=== PATIENT | female | born 1955 | race Caucasian/White ===

== ENCOUNTER 2018-06-09 17:11 | Outpatient (CLI) | payer BC ==
--- NOTE | 2018-06-09 18:47 | RAD ---
CHEST TWO VIEWS: 06/09/18 HISTORY: Cough and fever. COMPARISON: 01/31/15 study. Heart size appears borderline size. There are atherosclerotic changes of the aorta. The lungs show so me chronic change. No focal infiltrates. Right humeral prosthesis is present and appears to be somewh at medially subluxed. This is probably just related to the positioning. There is an old appearing rig ht clavicle fracture. IMPRESSION: No active intrathoracic disease. POS: [facility]
== END 2018-06-09 17:12 | disposition home or self-care (01) ==
LOC: SCSRAD 17:11
PROVIDERS: ATTEND Family Medicine
DX: R05 Cough (principal)
CPT/HCPCS: 36415; 71046; 83880

== ENCOUNTER 2018-10-21 10:47 | Outpatient (CLI) | payer BC ==
--- NOTE | 2018-10-21 15:06 | MMO ---
Bilateral MAMMO Bilat Screen [facility]. CLINICAL HISTORY: Patient is 63 years old and is seen for screening. The patient has no family history of breast cancer. The patient has no personal history of cancer. VIEWS: The views performed were: bilateral craniocaudal with tomosynthesis and bilateral mediolateral oblique with tomosynthesis. FILMS COMPARED: The present examination has been compared to prior imaging studies performed at [facility] on 04/26/2008, 04/30/2009, 08/07/2010, 10/02/2011, 03/14/2013, 03/30/2014 and 12/27/2015, and at [facility] on 06/05/1995 and 10/19/2000. MAMMOGRAM FINDINGS: There are scattered fibroglandular densities. There are no suspicious masses, suspicious calcifications, or new areas of architectural distortion. IMPRESSION: THERE IS NO MAMMOGRAPHIC EVIDENCE OF MALIGNANCY. A ROUTINE FOLLOW-UP MAMMOGRAM IN 1 YEAR IS RECOMMENDED. THE RESULTS OF THIS EXAM WERE SENT TO THE PATIENT. ACR BI-RADS Category 1 - Negative MAMMOGRAPHY NOTE: 1. A negative mammogram report should not delay a biopsy if a dominant of clinically suspicious mass is present. 2. Approximately 10% to 15% of breast cancers are not detected by mammography. 3. Adenosis and dense breasts may obscure an underlying neoplasm.
== END 2018-10-21 10:48 | disposition home or self-care (01) ==
LOC: BICMAMMO 10:47
PROVIDERS: ATTEND Family Medicine
DX: Z12.31 Encounter for screening mammogram for malignant neoplasm of breast (principal)
CPT/HCPCS: 77063; 77067

== ENCOUNTER 2020-03-15 11:27 | Outpatient (CLI) | payer BC ==
--- NOTE | 2020-03-15 11:52 | RAD ---
Exam: Chest one view 2 views right ribs HISTORY: Right chest wall pain FINDINGS: Chest one view: Slight elongation of the aorta. Normal cardiac silhouette. Pelvic vessels and hilum a re normal Costophrenic angles are clear. Hyperinflation with chronic lung parenchymal changes. No pneumothorax. Right rib fractures are noted. Right humeral prosthesis is identified Right wrist series: There are fractures involving the anterior lateral right fourth, fifth and possib ly sixth ribs. IMPRESSION: 1. Chronic lung parenchymal changes. 2. Right rib fractures. No pneumothorax.
== END 2020-03-15 11:28 | disposition home or self-care (01) ==
LOC: BICRAD 11:27
PROVIDERS: ATTEND Physician Assistant Medical
DX: R07.89 Other chest pain (principal); S22.41XA Multiple fractures of ribs, right side, initial encounter for closed fracture

== ENCOUNTER 2020-05-03 15:06 | Outpatient (CLI) | payer BC ==
--- NOTE | 2020-05-03 16:06 | MMO ---
Bilateral MAMMO Bilat Screen [facility]. CLINICAL HISTORY: Patient is 64 years old and is seen for screening. The patient has no family history of breast cancer. The patient has no personal history of cancer. VIEWS: The views performed were: bilateral craniocaudal with tomosynthesis and bilateral mediolateral oblique with tomosynthesis. FILMS COMPARED: The present examination has been compared to prior imaging studies performed at [facility] on 03/14/2013, 03/30/2014, 12/27/2015 and 10/21/2018. This study has been interpreted with the assistance of computer-aided detection. MAMMOGRAM FINDINGS: There are scattered fibroglandular densities. There are no suspicious masses, suspicious calcifications, or new areas of architectural distortion. IMPRESSION: THERE IS NO MAMMOGRAPHIC EVIDENCE OF MALIGNANCY. A ROUTINE FOLLOW-UP MAMMOGRAM IN 1 YEAR IS RECOMMENDED. THE RESULTS OF THIS EXAM WERE SENT TO THE PATIENT. ACR BI-RADS Category 1 - Negative MAMMOGRAPHY NOTE: 1. A negative mammogram report should not delay a biopsy if a dominant of clinically suspicious mass is present. 2. Approximately 10% to 15% of breast cancers are not detected by mammography. 3. Adenosis and dense breasts may obscure an underlying neoplasm. Reported by: CLAYTON DIANE MD Electonically Signed: [id number]
== END 2020-05-03 15:07 | disposition home or self-care (01) ==
LOC: BICMAMMO 15:06
PROVIDERS: ATTEND Family Medicine
DX: Z12.31 Encounter for screening mammogram for malignant neoplasm of breast (principal)
CPT/HCPCS: 77063; 77067

== ENCOUNTER 2021-03-20 09:56 | Outpatient (CLI) | payer BC, MEDICARE | END 2021-03-20 09:57 | disposition home or self-care (01) | LOC: TBSIIMAG 09:56 | PROVIDERS: ATTEND Orthopaedic Surgery | DX: M47.816 Spondylosis without myelopathy or radiculopathy, lumbar region (principal) | CPT/HCPCS: 72148 ==

== ENCOUNTER 2021-05-17 14:55 | Outpatient (CLI) | payer BC, MEDICARE | END 2021-05-17 14:56 | disposition home or self-care (01) | LOC: BICMAMMO 14:55 | PROVIDERS: ATTEND Family Medicine | DX: Z12.31 Encounter for screening mammogram for malignant neoplasm of breast (principal) | CPT/HCPCS: 77063; 77067 ==

== ENCOUNTER 2022-06-12 10:12 | Outpatient (CLI) | payer MEDICARE, OTHER | END 2022-06-12 10:13 | disposition home or self-care (01) | LOC: BICMAMMO 10:12 | PROVIDERS: ATTEND Family Medicine | DX: Z12.31 Encounter for screening mammogram for malignant neoplasm of breast (principal) | CPT/HCPCS: 77063; 77067 ==

== ENCOUNTER 2022-10-08 14:05 | Outpatient (CLI) | payer MEDICARE, OTHER | END 2022-10-08 14:06 | disposition home or self-care (01) | LOC: DTY/OP 14:05 | PROVIDERS: ATTEND Family Medicine | DX: E11.9 Type 2 diabetes mellitus without complications (principal) | CPT/HCPCS: 97802 ==

== ENCOUNTER 2023-04-10 17:00 | Outpatient (CLI) | payer MEDICARE, OTHER | END 2023-04-10 17:01 | disposition home or self-care (01) | LOC: SLEEPLAB 17:00 | PROVIDERS: ATTEND Internal Medicine | DX: G47.33 Obstructive sleep apnea (adult) (pediatric) (principal) | CPT/HCPCS: 95810 ==

== ENCOUNTER 2023-05-08 17:00 | Outpatient (CLI) | payer MEDICARE, OTHER | END 2023-05-08 17:01 | disposition home or self-care (01) | LOC: SLEEPLAB 17:00 | PROVIDERS: ATTEND Internal Medicine | DX: G47.33 Obstructive sleep apnea (adult) (pediatric) (principal) | CPT/HCPCS: 95811 ==

== ENCOUNTER 2024-01-25 11:31 | Outpatient (CLI) | payer MEDICARE, OTHER | END 2024-01-25 11:32 | disposition home or self-care (01) | LOC: BICMAMMO 11:31 | PROVIDERS: ATTEND Family Medicine | DX: Z12.31 Encounter for screening mammogram for malignant neoplasm of breast (principal) | CPT/HCPCS: 77063; 77067 ==